=== PATIENT | female | born 1970 | race Caucasian/White ===

== ENCOUNTER 2016-08-01 18:35 | Emergency (ER) | payer OTHER ==
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
[~2016-08-01 18:35] MED LIST: KEFLEX500 MG PO
== END 2016-08-01 18:47 | disposition home or self-care (01) ==
LOC: CFTX 18:35
DX: S39.012A Strain of muscle, fascia and tendon of lower back, initial encounter (principal); V49.00XA Driver injured in collision with unspecified motor vehicles in nontraffic accident, initial encounter
CPT/HCPCS: 72100; 99283